=== PATIENT | female | born 1960 | race Caucasian/White ===

== ENCOUNTER → 2021-06-06 | Outpatient (CLI) | payer OTHER, BC ==
[~2021-06-06] MED LIST: CIPR500 PO; DIPH50 PO; FAMO40 PO; PRED20 PO; SULTRIDS PO
== END | disposition home or self-care (01) ==
LOC: PLD 14:59 → LAB SHORT 14:59
DX: D48.5 Neoplasm of uncertain behavior of skin (principal)
CPT/HCPCS: 88305

== ENCOUNTER 2021-07-12 17:22 | Emergency (ER) | payer OTHER, BC ==
[~2021-07-12] VITALS: Ht 154.9 cm; Wt 68.0 kg
== END 2021-07-12 17:57 | disposition home or self-care (01) ==
LOC: ER 17:22
DX: I10 Essential (primary) hypertension (principal); Z88.2 Allergy status to sulfonamides; Z91.018 Allergy to other foods
CPT/HCPCS: 99282